=== PATIENT | female | born 1945 | race Caucasian/White ===

== ENCOUNTER 2022-05-02 12:20 | Emergency (ER) | payer MEDICARE ==
[~2022-05-02] VITALS: Ht 152.4 cm; Wt 545.7 kg
[2022-05-02 12:20] VITALS: BP_SYST 144
--- NOTE | 2022-05-02 12:20 | NUR ---
Placed in room 8 . Placed on cardiac cath tech, blood pressure machine and pulse oximeter. To gown for exam. Side rails up. Report given to MARIBEL BARCLAY.
--- NOTE | 2022-05-02 14:05 | NUR ---
ER DR. GAVIN EXAMINING PT
[2022-05-02 14:41] LABS: BASOPHILS % (AUTO) 0.7 % (0.0-2.0); EOSINOPHILS % (AUTO) 0.3 % (0.0-4.0); HEMATOCRIT 37.8 % (36-48); LYMPHOCYTES # (AUTO) 1.3 K/uL (1.0-5.5); LYMPHOCYTES % (AUTO) 22.5 % (20.5-51.5); MEAN CORPUSCULAR VOLUME 94 fL (79.0-98.0); MONOCYTES # (AUTO) 0.4 K/uL (0.0-1.0); MONOCYTES % (AUTO) 6.2 % (1.7-9.3); NEUTROPHILS # (AUTO) 4.1 K/uL (1.8-7.7); NEUTROPHILS % (AUTO) 70.3 % (40.0-70.0); PLATELET COUNT (AUTO) 219 K/uL (130-430); RED BLOOD CELL COUNT(AUTO) 4.01 MIL/uL (4.2-6.2); RED CELL DISTRIBUTION WIDTH 13.1 % (9.0-15.0); WHITE BLOOD COUNT (AUTO) 5.9 K/uL (4.8-10.8)
[2022-05-02 14:57] LABS: ANION GAP 5 (5-15); CALCIUM 9.2 mg/dL (8.4-11.0); CHLORIDE 102 mmol/L (98-107); CREATININE 1.02 mg/dL (0.55-1.30); GLUCOSE 94 mg/dL (70-99); POTASSIUM 3.9 mmol/L (3.5-5.1); SODIUM SERUM 138 mmol/L (136-145); UREA NITROGEN, BLOOD 13 mg/dL (8-21)
[2022-05-02 15:06] LABS: ALANINE AMINOTRANSFERASE 18 U/L (12-78); ALBUMIN 3.6 g/dL (3.4-4.8); ASPARTATE AMINOTRANSFERASE 18 U/L (10-37); TOTAL BILIRUBIN 1.4 mg/dL (0.0-1.0)
[2022-05-02] MEDS ORDERED: ASPIRIN 81 MG TABLET(ECOTRIN) PO ONE (16:15)
[2022-05-02] MEDS ORDERED: ASPI-1393 PO (16:15)
[2022-05-02 19:44] VITALS: BP_SYST 159
--- NOTE | 2022-05-02 19:47 | NUR ---
Patient evaluated over several hours and observed by RN and MD. Patient's blood pressure decreased on it's own without medication intervention. Patient with family and teaching on TIA/STROKE was performed throughout the afternoon. Patient had no complaints throughout they stay.
--- NOTE | 2022-05-02 19:51 | NUR ---
Patient given written and verbal discharge instructions and verbalizes understanding. ER MD discussed with patient the results and treatment provided. Patient in stable condition. ID arm band removed. IV catheter removed intact and dressing applied, no active bleeding. Rx of aspirin given. Patient educated on pain management and to follow up with PMD. Pain Scale 0/10. Opportunity for questions provided and answered. Medication side effect fact sheet provided.
== END 2022-05-02 19:44 | disposition home or self-care (01) ==
LOC: SED 12:20
DX: G45.9 Transient cerebral ischemic attack, unspecified (principal); R42 Dizziness and giddiness; R11.0 Nausea; Z79.899 Other long term (current) drug therapy
CPT/HCPCS: 36415; 70450-TC; 71045; 76376; 80053; 84484; 85025; 99285

== ENCOUNTER 2023-08-11 16:25 | Emergency (ER) | payer OTHER ==
[~2023-08-11] VITALS: Ht 147.3 cm; Wt 53.5 kg
[~2023-08-11 16:25] MED LIST: ASPI-1393 PO
[2023-08-11 16:31] VITALS: BP_SYST 154; PULSE 71; RESP 17; TEMP 97.3; O2SAT 99
[2023-08-11 18:35] LABS: INFLUENZA TYPE A Negative (NEGATIVE); INFLUENZA TYPE B NEGATIVE (NEGATIVE)
[2023-08-11] MEDS ORDERED: ALBMDI INH (19:20)
[2023-08-11] MEDS ORDERED: DIPH25CA83 PO (19:20)
[2023-08-11 20:00] VITALS: BP_SYST 151; PULSE 72; RESP 19; TEMP 98; O2SAT 100
== END 2023-08-11 20:00 | disposition home or self-care (01) ==
LOC: SED 16:25
DX: J40 Bronchitis, not specified as acute or chronic (principal); R05.9 Cough, unspecified; Z79.899 Other long term (current) drug therapy; Z20.822 Contact with and (suspected) exposure to COVID-19
CPT/HCPCS: 36415; 71045; 99284

== ENCOUNTER 2023-08-16 12:43 | Emergency (ER) | payer OTHER ==
[~2023-08-16] VITALS: Ht 147.3 cm; Wt 52.6 kg
[~2023-08-16 12:43] MED LIST changes: +ALBMDI INH; +DIPH25CA83 PO
[2023-08-16 13:17] VITALS: BP_SYST 182; PULSE 78; RESP 18; TEMP 98.8; O2SAT 99
[2023-08-16 14:46] LABS: INFLUENZA TYPE A Negative (NEGATIVE); INFLUENZA TYPE B NEGATIVE (NEGATIVE)
[2023-08-16] MEDS ORDERED: ZIT250 PO (15:59)
[2023-08-16] MEDS ORDERED: BENZ100C92 PO (15:59)
[2023-08-16] MEDS ORDERED: AZITHROMYCIN 250 MG TABLET PO ONE (16:00)
[2023-08-16] MEDS ORDERED: BENZONATATE 100 MG CAPSULE (TESSALON) PO ONE (16:00)
[2023-08-16 16:37] VITALS: BP_SYST 182; PULSE 78; RESP 18; TEMP 98.8; O2SAT 99
== END 2023-08-16 16:36 | disposition home or self-care (01) ==
LOC: SED 12:43
DX: J40 Bronchitis, not specified as acute or chronic (principal); J06.9 Acute upper respiratory infection, unspecified; R05.9 Cough, unspecified; R09.81 Nasal congestion; Z79.899 Other long term (current) drug therapy; Z20.822 Contact with and (suspected) exposure to COVID-19
CPT/HCPCS: 99284; 71045; 87426; 36415; 87804 ×2; Q0144